=== PATIENT | female | born 1930 | race Caucasian/White ===

== ENCOUNTER 2022-01-10 02:04 | Inpatient (IN) ==
[2022-01-10] MEDS ORDERED: ACETAMINOPHEN 325 MG TABLET PO PRN (05:09)
[2022-01-10] MEDS ORDERED: DEXTROSE 10% 250 ML BAG IV PRN (05:09)
[2022-01-10] MEDS ORDERED: GLUCAGON 1 MG VIAL IM PRN (05:09)
[2022-01-10] MEDS ORDERED: ONDANSETRON 4 MG/2 ML VIAL IV PRN (05:09)
[2022-01-10] MEDS ORDERED: DOCUSATE SODIUM 100 MG CAPSULE PO PRN (05:09)
[2022-01-10] MEDS ORDERED: methylPREDNISolone SOD SUC 40 MG/1 ML VIAL IV SCH (05:30)
[2022-01-10] MEDS ORDERED: diphenhydrAMINE CAP 25 MG CAPSULE PO SCH (06:00)
[2022-01-10] MEDS ORDERED: LEVOFLOXACIN INJ 500 MG/100 ML PREMIX IV SCH (06:30)
[2022-01-10] MEDS: FAMOTIDINE 20 MG/2 ML VIAL IV SCH ×2 (06:46→18:58)
[2022-01-10] MEDS: SODIUM CHLORIDE 0.9% 1,000 ML IV SCH ×2 (07:05→17:33)
[2022-01-10 07:17] LABS: Basophils % 0.3 % (0.0-0.8); Eosinophils % 0.1 % (0.00-10.9); Hemoglobin 11.2 GM/DL (12.0-16.0); Immature Granulocytes % 0.7 %; Immature Granulocytes Absolute 0.06 #; Lymphocytes # 0.4 10*3/uL (1.4-4.0); Lymphocytes % 4.6 % (21.3-54.2); Mean Corpuscular HGB Conc 32.9 GM/DL (32-36); Mean Platelet Volume 14.3 FL (9.6-12.0); Monocytes % 0.7 % (1.7-12.7); Neutrophils % 93.6 % (38.7-73.9); Platelet Count 67 T/CUMM (130-400); Red Cell Distribution Width 15.4 % (9.3-17.3); White Blood Count 9.2 T/CUMM (4-12)
[2022-01-10 07:47] LABS: Albumin 2.5 G/DL (3.4-5.0); Bilirubin,Total 4.5 MG/DL (0.20-1.00); Calcium 7.8 MG/DL (8.5-10.1); Osmolality,Calculated 291.3 MOS/KG (273-304); Thyroid Stimulating Hormone 0.372 uIU/ml (0.358-3.74); Total Protein 5.2 G/DL (6.4-8.2)
[2022-01-10] MEDS ORDERED: diphenhydrAMINE 50 MG/1 ML VIAL IV PRN (07:48)
[2022-01-10 08:52] LABS: Band Neutrophils 6 % (0-10); Lymphocytes 1 % (20-55); Segmented Neutrophils 93 % (50-85); Total Cells Counted 100
[2022-01-10 08:53] LABS: Microcytosis 1+; Platelet Estimate Decreased
[2022-01-10] MEDS ORDERED: PANTOPRAZOLE 40 MG TABLET PO SCH (09:00)
[2022-01-10 09:12] LABS: Bacteria,Urine Occasional /HPF (Few); Mucus,Urine Few /LPF (Occasional); RBC,Urine 343 /HPF (0-4); Squamous Epithelial Cell,Urine Occasional /HPF (0-10)
[2022-01-10 09:13] LABS: Urine Color Yellow (Yellow); Urine Specific Gravity > 1.030 (1.001-1.035)
[2022-01-10 09:14] LABS: Bilirubin,Urine Small mg/dL (Negative); Blood, Urine Large mg/dL (Negative); Glucose,Urine (UA) Negative (Negative); Ketones,Urine 80 mg/dL (Negative); Nitrite,Urine Negative (Negative); Protein,Urine 30 mg/dL (Negative)
[2022-01-10 09:15] LABS: Urine Appearance Slightly Hazy (Clear)
[2022-01-10] MEDS: INSULIN LISPRO 100 UNIT/ML SUBCUT SCH ×4 (09:22→20:53)
[2022-01-10] MEDS: methylPREDNISolone SOD SUC 40 MG/1 ML VIAL IV SCH ×3 (09:24→23:39)
[2022-01-10] MEDS: NYSTATIN POWDER 15 GM BOTTLE TOP SCH ×3 (09:25→20:53)
[2022-01-10] MEDS: POTASSIUM CHLORIDE 20 MEQ TABLET PO PRN ×3 (09:25→14:58)
[2022-01-10] MEDS: NITROFURANTOIN MACRO/MONO 100 MG CAPSULE PO SCH ×2 (09:26→20:53)
[2022-01-10] MEDS: CLOTRIMAZOLE/BETAMETHASONE CREAM 15 GM TUBE TOP SCH ×2 (14:31→20:53)
[2022-01-10] MEDS: diphenhydrAMINE CAP 25 MG CAPSULE PO SCH ×2 (17:31→23:38)
[2022-01-11] MEDS ORDERED: ALBUTEROL/IPRATROPIUM 3 ML NEB RESP TX ONE (05:45)
[2022-01-11] MEDS ORDERED: FUROSEMIDE 40 MG/4 ML VIAL IV ONE (05:57)
[2022-01-11 06:03] LABS: Basophils % 0.1 % (0.0-0.8); Eosinophils % 0.1 % (0.00-10.9); Hemoglobin 11.7 GM/DL (12.0-16.0); Immature Granulocytes % 0.6 %; Immature Granulocytes Absolute 0.08 #; Lymphocytes # 1.5 10*3/uL (1.4-4.0); Lymphocytes % 10.8 % (21.3-54.2); Mean Corpuscular HGB Conc 31.6 GM/DL (32-36); Mean Corpuscular Volume 102.5 FL (87-102); Mean Platelet Volume 12.5 FL (9.6-12.0); Monocytes % 1.7 % (1.7-12.7); Neutrophils % 86.7 % (38.7-73.9); Platelet Count 97 T/CUMM (130-400); Red Blood Count 3.61 MC/CUMM (3.8-5.5); Red Cell Distribution Width 15.4 % (9.3-17.3); White Blood Count 14.3 T/CUMM (4-12)
[2022-01-11] MEDS: FAMOTIDINE 20 MG/2 ML VIAL IV SCH ×2 (06:10→17:56)
[2022-01-11] MEDS: diphenhydrAMINE CAP 25 MG CAPSULE PO SCH ×4 (06:13→17:57)
[2022-01-11 06:26] LABS: Bilirubin,Total 2.4 MG/DL (0.20-1.00); Calcium 8.6 MG/DL (8.5-10.1); Osmolality,Calculated 292.1 MOS/KG (273-304); Potassium 4.1 MMOL/L (3.5-5.1); Total Protein 6.1 G/DL (6.4-8.2)
[2022-01-11 06:32] LABS: Band Neutrophils 3 % (0-10); Lymphocytes 6 % (20-55); Microcytosis 1+; Ovalocytes Slight; Segmented Neutrophils 90 % (50-85); Total Cells Counted 100
[2022-01-11 06:33] LABS: Platelet Estimate Decreased
[2022-01-11 09:12] LABS: HIV Antigen/Antibody Result Nonreactive (Nonreactive); Hepatitis B Surface Ag Quant 0.14 Index; Hepatitis B Surface Ag Result Non-Reactive (NonReactive); Hepatitis C Virus Ab Quant < 0.02 Index; Hepatitis C Virus Ab Result Non-Reactive (NonReactive)
[2022-01-11] MEDS: CLOTRIMAZOLE/BETAMETHASONE CREAM 15 GM TUBE TOP SCH ×2 (10:40→21:48)
[2022-01-11] MEDS: methylPREDNISolone SOD SUC 40 MG/1 ML VIAL IV SCH ×2 (11:04→16:55)
[2022-01-11] MEDS: INSULIN LISPRO 100 UNIT/ML SUBCUT SCH ×4 (11:05→21:48)
[2022-01-11] MEDS: NITROFURANTOIN MACRO/MONO 100 MG CAPSULE PO SCH ×2 (11:05→21:47)
[2022-01-11] MEDS: NYSTATIN POWDER 15 GM BOTTLE TOP SCH ×3 (11:06→21:48)
[2022-01-11] MEDS: FLUCONAZOLE 200 MG TABLET PO SCH (14:12)
[2022-01-11] MEDS ORDERED: ALBUTEROL/IPRATROPIUM 3 ML NEB RESP TX PRN (14:22)
[2022-01-12] MEDS: diphenhydrAMINE CAP 25 MG CAPSULE PO SCH ×4 (01:09→20:37)
[2022-01-12] MEDS: methylPREDNISolone SOD SUC 40 MG/1 ML VIAL IV SCH ×2 (01:15→08:11)
[2022-01-12 05:24] LABS: Hematocrit 33.8 VOL% (35.7-47.0); Hemoglobin 10.8 GM/DL (12.0-16.0); Immature Granulocytes % 0.4 %; Immature Granulocytes Absolute 0.03 #; Lymphocytes # 0.5 10*3/uL (1.4-4.0); Lymphocytes % 6.3 % (21.3-54.2); Mean Corpuscular Volume 100.3 FL (87-102); Monocytes % 1.2 % (1.7-12.7); Neutrophils % 92.1 % (38.7-73.9); Red Blood Count 3.37 MC/CUMM (3.8-5.5); Red Cell Distribution Width 15.1 % (9.3-17.3); White Blood Count 8.6 T/CUMM (4-12)
[2022-01-12 05:28] LABS: Platelet Count 83 T/CUMM (130-400)
[2022-01-12] MEDS: FAMOTIDINE 20 MG/2 ML VIAL IV SCH (05:28)
[2022-01-12 05:48] LABS: Albumin 2.8 G/DL (3.4-5.0); Calcium 8.5 MG/DL (8.5-10.1); Osmolality,Calculated 295.8 MOS/KG (273-304)
[2022-01-12 05:56] LABS: Band Neutrophils 12 % (0-10); Lymphocytes 7 % (20-55); Segmented Neutrophils 80 % (50-85); Total Cells Counted 100
[2022-01-12 05:57] LABS: Anisocytosis 1+; Platelet Estimate Decreased
[2022-01-12 05:58] LABS: Macrocytosis Slight
[2022-01-12] MEDS: INSULIN LISPRO 100 UNIT/ML SUBCUT SCH ×4 (08:07→20:36)
[2022-01-12] MEDS: NITROFURANTOIN MACRO/MONO 100 MG CAPSULE PO SCH ×2 (08:19→20:36)
[2022-01-12] MEDS: FLUCONAZOLE 200 MG TABLET PO SCH (08:19)
[2022-01-12] MEDS: CLOTRIMAZOLE/BETAMETHASONE CREAM 15 GM TUBE TOP SCH ×2 (08:26→20:37)
[2022-01-12] MEDS: NYSTATIN POWDER 15 GM BOTTLE TOP SCH ×3 (08:26→20:37)
[2022-01-12] MEDS: FAMOTIDINE 20 MG TABLET PO SCH (20:36)
[2022-01-12] MEDS: DESITIN 4OZ/NYSTATIN 15 GRAM MIXTURE PASTE TOP SCH (20:37)
[2022-01-12] MEDS: SODIUM CHLORIDE 0.9% 1,000 ML IV SCH (21:23)
[2022-01-13 05:50] LABS: Basophils % 0.2 % (0.0-0.8); Hematocrit 33.9 VOL% (35.7-47.0); Hemoglobin 10.7 GM/DL (12.0-16.0); Immature Granulocytes % 0.8 %; Immature Granulocytes Absolute 0.07 #; Lymphocytes # 0.8 10*3/uL (1.4-4.0); Lymphocytes % 9.3 % (21.3-54.2); Mean Corpuscular HGB Conc 31.6 GM/DL (32-36); Mean Corpuscular Volume 101.2 FL (87-102); Mean Platelet Volume 13.3 FL (9.6-12.0); Neutrophils % 83.7 % (38.7-73.9); Platelet Count 92 T/CUMM (130-400); Red Blood Count 3.35 MC/CUMM (3.8-5.5); Red Cell Distribution Width 14.8 % (9.3-17.3); White Blood Count 8.6 T/CUMM (4-12)
[2022-01-13 06:11] LABS: Albumin 2.8 G/DL (3.4-5.0); Bilirubin,Total 1.6 MG/DL (0.20-1.00); Osmolality,Calculated 299.1 MOS/KG (273-304); Potassium 4.2 MMOL/L (3.5-5.1); Total Protein 6.1 G/DL (6.4-8.2)
[2022-01-13 06:27] LABS: Anisocytosis 1+; Band Neutrophils 10 % (0-10); Lymphocytes 11 % (20-55); Macrocytosis 1+; Metamyelocytes 1 %; Platelet Estimate Decreased; Segmented Neutrophils 72 % (50-85); Total Cells Counted 100
[2022-01-13 08:01] VITALS: BP 138/61
[2022-01-13] MEDS ORDERED: predniSONE 20 MG TABLET PO SCH (09:00)
[2022-01-13] MEDS: INSULIN LISPRO 100 UNIT/ML SUBCUT SCH (09:09)
[2022-01-13] MEDS: CLOTRIMAZOLE/BETAMETHASONE CREAM 15 GM TUBE TOP SCH (09:10)
[2022-01-13] MEDS: NITROFURANTOIN MACRO/MONO 100 MG CAPSULE PO SCH (09:10)
[2022-01-13] MEDS: FAMOTIDINE 20 MG TABLET PO SCH (09:10)
[2022-01-13] MEDS: diphenhydrAMINE CAP 25 MG CAPSULE PO SCH (09:14)
[2022-01-13] MEDS: NYSTATIN POWDER 15 GM BOTTLE TOP SCH (09:14)
[2022-01-13] MEDS: DESITIN 4OZ/NYSTATIN 15 GRAM MIXTURE PASTE TOP SCH (09:14)
== END 2022-01-13 11:55 | disposition home health service (06) | DRG 606 ==
LOC: N.5E → SUATTDRO 03:44
PROVIDERS: ADMIT Internal Medicine; ATTEND Internal Medicine